=== PATIENT | female | born 2000 | race Native Hawaiian/Other Pacific Islander ===

== ENCOUNTER 2022-07-06 18:18 | Emergency (ER) | payer MEDICAID ==
[~2022-07-06] VITALS: Ht 160 cm; Wt 75.3 kg
[2022-07-06 18:24] VITALS: BP 130/64
--- NOTE | 2022-07-06 18:29 | NUR ---
PT AMBULATED TO ER BED 8
--- NOTE | 2022-07-06 18:51 | NUR ---
Dr. Saba evaluating patient at bedside.
--- NOTE | 2022-07-06 18:53 | NUR ---
22 y/o female bib self for c/o pain from umbilical area that wraps to back x 1 week. Patient states pain has increased since last night. Patient has 7/10 cramping pain. Patient denies any fever, chills, dysuria or any sick contacts. Patient also denies any new foods or vaginal bleeding. LMP 05/24/22. Medical History: Anemia NKDA
[2022-07-06] MEDS ORDERED: NITR100C7 PO (18:59)
--- NOTE | 2022-07-06 19:08 | NUR ---
Patient discharged with v/s stable. Written and verbal after care instructions given. Patient alert, oriented and verbalized understanding of instructions. Ambulatory with steady gait. All questions addressed prior to discharge. ID band removed. Patient advised to follow up with PMD. Rx of Macrobid given. Opportunity to ask questions provided and answered.
== END 2022-07-06 19:08 | disposition home or self-care (01) ==
LOC: MED 18:18
DX: O23.41 Unspecified infection of urinary tract in pregnancy, first trimester (principal); Z3A.01 Less than 8 weeks gestation of pregnancy
CPT/HCPCS: 81002; 81025; 87086; 99283

== ENCOUNTER 2022-07-17 22:17 | Emergency (ER) | payer MEDICAID ==
[~2022-07-17] VITALS: Ht 160 cm; Wt 74.8 kg
[~2022-07-17 22:17] MED LIST: NITR100C7 PO
[2022-07-17 22:20] VITALS: BP 116/55
--- NOTE | 2022-07-17 22:20 | NUR ---
TO BED AMBULATORY
--- NOTE | 2022-07-17 22:42 | NUR ---
maureen pickard at bedside.
--- NOTE | 2022-07-17 22:45 | NUR ---
22/F BIB SELF C/C VAGINAL BLEEDING XTODAY. PATIENT REPORTS HAVING SMALL BLOOD CLOTS IN URINE . +LOWER ABD CRAMPING 03/04. + NAUSEA. PATIENT STATED THAT THIS IS HER FIRST . PATIENT PLACED IN BED AND GOWN. PATIENT BED LOW AND LOCKED. SIDE RAIL UP FOR SAFETY. LMP 05/22 PMHX ANEMIA NKA
[2022-07-17] MEDS ORDERED: ALUMINUM HYD/MAG/SIMETHICONE 30 ML UDC PO ONE (22:50)
[2022-07-17] MEDS ORDERED: ACETAMINOPHEN EXTRA STRENGTH 500 MG TAB PO ONE (22:50)
--- NOTE | 2022-07-17 22:50 | NUR ---
LAB AT BEDSIDE
[2022-07-17 22:57] LABS: BASOPHILS % (AUTO) 0.3 % (0.0-2.0); EOSINOPHILS # (AUTO) 0.1 K/uL (0-0.4); EOSINOPHILS % (AUTO) 1.9 % (0.0-4.0); HEMATOCRIT 35.1 % (36-48); HEMOGLOBIN 11.6 g/dL (12.0-16.0); LYMPHOCYTES # (AUTO) 2.5 K/uL (2.5-16.5); LYMPHOCYTES % (AUTO) 39.2 % (20.5-51.1); MEAN CORPUSCULAR HEMOGLOBIN 28 pg (27-31); MEAN CORPUSCULAR HGB CONC 33 g/dL (33-37); MEAN CORPUSCULAR VOLUME 85.4 fL (80-94); MONOCYTES # (AUTO) 0.6 K/uL (0.8-1.0); NEUTROPHILS # (AUTO) 3.2 K/uL (1.8-7.7); NEUTROPHILS % (AUTO) 49.6 % (42.2-75.2); PLATELET COUNT (AUTO) 287 K/uL (140-450); RED BLOOD CELL COUNT(AUTO) 4.11 MIL/uL (4.20-5.40); RED CELL DISTRIBUTION WIDTH 14.2 % (11.6-13.7); WHITE BLOOD COUNT (AUTO) 6.4 K/uL (4.8-10.8)
--- NOTE | 2022-07-17 22:57 | NUR ---
PATIENT MEDICATED PER ORDERS. TOLERATED WELL.
[2022-07-17 23:04] LABS: APPEARANCE,URINE CLEAR (CLEAR); BILIRUBIN,URINE NEGATIVE (NEGATIVE); BLOOD, URINE 2+ (NEGATIVE); COLOR,URINE YELLOW (YELLOW); LEUKOCYTE ESTERASE ,URINE NEGATIVE (NEGATIVE); NITRITE, URINE NEGATIVE (NEGATIVE); PH,URINE 6.5 (5.0-9.0); UGLUCOSE NEGATIVE (NEGATIVE)
[2022-07-17 23:08] LABS: RBC,URINE 0-5 /HPF (0-5); WBC,URINE 0-5 /HPF (0-5)
[2022-07-18 01:00] VITALS: BP 93/52
--- NOTE | 2022-07-18 03:13 | NUR ---
Patient discharged with v/s stable. Written and verbal after care instructions given and explained. Patient verbalized understanding. Ambulatory with steady gait. All questions addressed prior to discharge. Advised to follow up with PMD.
== END 2022-07-18 03:13 | disposition home or self-care (01) ==
LOC: MED 22:17
DX: O26.891 Other specified pregnancy related conditions, first trimester (principal); R10.9 Unspecified abdominal pain; D64.9 Anemia, unspecified; Z3A.01 Less than 8 weeks gestation of pregnancy; Z79.899 Other long term (current) drug therapy
CPT/HCPCS: 36415; 76817; 81001; 81025; 84702; 85025; 86900; 86901; 87086; 99284; Q0092

== ENCOUNTER 2022-07-19 22:09 | Emergency (ER) | payer MEDICAID ==
[~2022-07-19] VITALS: Ht 160 cm; Wt 76.2 kg
[2022-07-19 22:43] VITALS: BP 107/67
--- NOTE | 2022-07-19 22:50 | NUR ---
Patient states " I will wait inside a car."
--- NOTE | 2022-07-20 02:07 | NUR ---
CALLED FOR PATIENT 3 TIMES BOTH INSIDE LOBBY AND OUTSIDE IN PARKING LOT. NO ANSWER.
--- NOTE | 2022-07-20 02:11 | NUR ---
PATIENT LEFT WITHOUT BEING SEEN BY DR. Stallworth. NO FURTHER CARE PROVIDED FOR PATIENT.
== END 2022-07-20 02:11 | disposition left against medical advice (07) ==
LOC: MED 22:09
DX: O46.91 Antepartum hemorrhage, unspecified, first trimester (principal); Z3A.08 8 weeks gestation of pregnancy; Z53.21 Procedure and treatment not carried out due to patient leaving prior to being seen by health care provider

== ENCOUNTER 2022-08-04 09:10 | Day surgery (SDC) | payer MEDICAID ==
[~2022-08-04] VITALS: Ht 160 cm; Wt 75.3 kg
[2022-08-04 11:24] LABS: BASOPHILS % (AUTO) 0.2 % (0.0-2.0); EOSINOPHILS # (AUTO) 0.1 K/uL (0-0.4); EOSINOPHILS % (AUTO) 1.2 % (0.0-4.0); HEMATOCRIT 36.8 % (36-48); HEMOGLOBIN 12.2 g/dL (12.0-16.0); LYMPHOCYTES # (AUTO) 1.9 K/uL (2.5-16.5); LYMPHOCYTES % (AUTO) 30.4 % (20.5-51.1); MEAN CORPUSCULAR HEMOGLOBIN 29 pg (27-31); MEAN CORPUSCULAR HGB CONC 33 g/dL (33-37); MEAN CORPUSCULAR VOLUME 86.3 fL (80-94); MONOCYTES # (AUTO) 0.4 K/uL (0.8-1.0); MONOCYTES % (AUTO) 6.1 % (1.7-9.3); NEUTROPHILS # (AUTO) 3.8 K/uL (1.8-7.7); NEUTROPHILS % (AUTO) 62.1 % (42.2-75.2); PLATELET COUNT (AUTO) 306 K/uL (140-450); RED BLOOD CELL COUNT(AUTO) 4.27 MIL/uL (4.20-5.40); RED CELL DISTRIBUTION WIDTH 13.7 % (11.6-13.7); WHITE BLOOD COUNT (AUTO) 6.2 K/uL (4.8-10.8)
[2022-08-04 12:11] LABS: ALBUMIN 4.1 g/dL (3.4-5.0); ANION GAP 8.1 (8-16); CARBON DIOXIDE 29.8 mmol/L (21-32); CREATININE 0.5 mg/dL (0.6-1.3); POTASSIUM 3.9 mmol/L (3.5-5.1); TOTAL BILIRUBIN 0.2 mg/dL (0.0-1.0)
[2022-08-04] MEDS ORDERED: fentaNYL citrate 0.05 MG/ML VIAL ONE (12:28)
[2022-08-04] MEDS ORDERED: METHYLERGONOVINE 0.2 MG/ML AMP ONE (12:53)
[2022-08-04] MEDS ORDERED: ONDANSETRON 4 MG/2 ML VIAL ONE (13:01)
[2022-08-04] MEDS ORDERED: PROPOFOL 200 MG/20 ML VIAL IV ONE (13:01)
[2022-08-04] MEDS ORDERED: KETOROLAC 30 MG/ML VIAL ONE (13:02)
[2022-08-04] MEDS: HYDROmorphone 1 MG/ML AMP IVP PRN ×4 (13:10→13:40)
[2022-08-04] MEDS ORDERED: HYDROmorphone PFS 2 MG/ML SYR ONE (13:12)
[2022-08-04] MEDS ORDERED: LABETALOL 20 MG/4 ML VIAL IVP PRN (13:14)
[2022-08-04] MEDS ORDERED: hydrALAZINE 20 MG/ML VIAL IVP PRN (13:15)
[2022-08-04] MEDS ORDERED: LACTATED RINGERS 1,000 ML IV SCH (13:15)
[2022-08-04] MEDS ORDERED: METOCLOPRAMIDE 10 MG/2 ML INJ VIAL IVP PRN (13:15)
== END 2022-08-04 15:30 | disposition home or self-care (01) ==
LOC: MDS 09:10 → MMU 09:21 → MDS 15:30
PROVIDERS: ATTEND Obstetrics & Gynecology
DX: O03.4 Incomplete spontaneous abortion without complication (principal); Z20.822 Contact with and (suspected) exposure to COVID-19
CPT/HCPCS: 36415; 59812; 80053; 84702; 85025; 87426; J1170; J1885; J2210; J2405; J2704; J3010